=== PATIENT | male | born 1935 | race Caucasian/White ===

== ENCOUNTER → 2020-07-10 | Outpatient (CLI) | payer MEDICARE, OTHER ==
[~2020-07-10] MED LIST: ALLEGRA-D 12 H1 EAC1; ATENOLOL; LIPITOR; OMEPRAZOLE; VITAMINS
== END ==
LOC: M.MRI 13:04
PROVIDERS: ATTEND Family Medicine
DX: G30.9 Alzheimer's disease, unspecified (principal); G31.89 Other specified degenerative diseases of nervous system; F02.80 Dementia in other diseases classified elsewhere, unspecified severity, without behavioral disturbance, psychotic disturbance, mood disturbance, and anxiety

== ENCOUNTER → 2021-02-25 | Outpatient (CLI) | payer MEDICARE, OTHER | LOC: M.ULTRA 11:00 | PROVIDERS: ATTEND Nurse Practitioner Family | DX: M71.21 Synovial cyst of popliteal space [Baker], right knee (principal); M25.561 Pain in right knee; M79.89 Other specified soft tissue disorders ==